=== PATIENT | male | born 1990 ===

== ENCOUNTER 2024-02-26 07:28 | Outpatient (CLI) | payer OTHER ==
--- NOTE | 2024-02-26 09:31 | Ultrasound Report ---
PROCEDURE: Abdomen Complete INDICATIONS: ABD PAIN TECHNIQUE: Real-time scanning was performed of the abdominal and retroperitoneal organs, with image documentatio n. COMPARISON: None. FINDINGS: Liver: Liver is enlarged measuring 19.8 cm and diffusely echogenic. Main portal vein is patent with hepatopedal flow. Gallbladder: No stones or sludge. No sonographic evidence of a polyp. Normal wall t hickness measuring. Biliary ducts: Intrahepatic bile ducts are non-dilated. Extrahepatic bile duct caliber measures 2 m m. Normal is 6-7 mm or less in diameter, or 10 mm or less post-cholecystectomy. Pancreas: Visualized portions of the pancreas are sonographically normal. Of note, the tail is not w ell seen. Spleen: Spleen is normal in size and homogeneous in echotexture. Kidneys: Kidneys are normal in size and echotexture. Right kidney measures 10.5 cm long; left kidne y measures 11.5 cm long. No hydronephrosis or nephrolithiasis. No solid masses. No complex renal cy stic lesions which require follow-up. Aorta: Visualized aorta is normal in caliber at less than 3 cm. Proximal abdominal aorta measures 2. 7 cm. Iliacs: Proximal common iliac arteries are normal in caliber at less than 2.5 cm. IVC: Intrahepatic inferior vena cava is patent. Miscellaneous: No free abdominal fluid. IMPRESSION: 1.Liver is enlarged and diffusely echogenic which may be seen in the setting of parenchymal disease s uch as steatosis. 2.Normal sonographic appearance of the gallbladder with no evidence of a polyp. 3.Proximal abdominal aorta is ectatic measuring 2.7 cm. Recommend repeat imaging in 5 years per White guidelines. Reviewed by: Mackenzie Fitch MD on 02/26/2024 9:29 AM PDT Approved by: Mackenzie Fitch MD on 02/26/2024 9:29 AM PDT Station ID: [id number]
== END 2024-02-26 07:29 | disposition home or self-care (01) ==
LOC: DI 07:28
PROVIDERS: ATTEND Registered Nurse
DX: R16.0 Hepatomegaly, not elsewhere classified (principal); R10.9 Unspecified abdominal pain